=== PATIENT | male | born 1940 | race Caucasian/White ===

== ENCOUNTER 2017-08-22 15:40 | Emergency (ER) | payer MEDICARE ==
[2017-08-22] MEDS ORDERED: Sodium Chloride 0.9% 1000 ML 1,000 ML IV SCH (15:45)
[2017-08-22 15:54] LABS: A-aADO2 188; ABG HEMOGLOBIN 13.4; ABG POTASSIUM 4.1 (3.5-5.1); ARTERIAL BLD GAS O2 SATURATION 28.5 % (95-100); ARTERIAL BLOOD GAS BASE EXCESS -1.3 (-2.0-2.0); ARTERIAL BLOOD GAS FIO2 36 %; ARTERIAL BLOOD GAS PCO2 43 mmHg (35-45); ARTERIAL BLOOD GAS pH 7.36 (7.35-7.45); CARBOXYHEMOGLOBIN 1.5 % THgb (0.0-6.9); Glucose,Critical Care 88 (70-110); HCO3- 24.3 (22-28); HGB O2 SAT 27.8 g/dF (94-100); Lactic Acid 2.8 (0.4-2.0); Methhemoglobin 0.9 % (1.4-1.5); paO2 pAO1 0.07
[2017-08-22 15:55] LABS: ARTERIAL BLOOD GAS PO2 15 mmHg (75-100)
[2017-08-22 15:56] LABS: ABG SITE LEFT BRACHIAL
--- NOTE | 2017-08-22 16:11 | ERPHSYRPT ---
- History of Present Illness Time Seen by Provider: 08/22/17 15:45 Source: EMS, long term records Patient Subjective Stated Complaint: PT BROUGHT TO ED PER EMS-PT [place] WITH DECREASED LOC-ENROUTE [facility]IC ADMINISTERED NARCAN-PT THEN BECAME [id number] Triage Nursing Assessment: PT PALE WARM ET [id number] SIMPLE COMMANDS -NOT ABLE TO ANSWER ALL QUESTIONS-LUNGS CLEAR-PUPILS MORE RESPONSIVE THAN INITIAL ARRIVAL Physician History: CC: unresponsive hx: 76 y/o patient from [facility]. Pt of Dr Brendon Álvarez. He is in [place] post fractures last summer. He has a right arm brace. Nurse states he has had grdual decline and has periods of lethargy. Today the nurse went to give treatments and he was in bed unresponsive. Eyes rolled back in head. Vitals ok. Pulse ox 92%RA. He wears fentanyl patch. EMS was called. He was loaded into rescue truck and then transferred to a [facility] ambulance. They removed fentanyl patch, noted pinpoint pupils, and gave 1mg narcan with some improvement to a confused state. He was then brought to ER. Pt unable to give hx. Timing/Duration: today Severity: severe Allergies/Adverse Reactions: Penicillins Allergy (Mild, Verified 08/22/17 16:37) Home Medications: Albuterol/Ipratropium 3ml Neb* [DUONEB 0.5-3 MG/3 ml Neb] 3 ml NEB Q4H PRN 02/01 [History] Aspirin [Adult Aspirin Regimen] 81 mg PO DAILY 08/22/17 [History] Atorvastatin Calcium 80 mg PO DAILY 08/22/17 [History] Benzocaine/Menthol [Cepacol Sore Throat Lozenge] 1 each MM PER HOUR PRN [History] Dextran 70/Hypromellose [Artificial Tears] 1 each OP TID 08/22/17 [History] Fentanyl 1 each TD 2XW 08/22/17 [History] Fluticasone Propionate [Flovent Diskus] 50 mcg IH DAILY 08/22/17 [History] Folic Acid 0.4 mg PO DAILY 08/22/17 [History] Furosemide 40 mg [Lasix 40 MG] 40 mg PO DAILY 08/22/17 [History] Gabapentin 300 mg PO HS 08/22/17 [History] Guaifenesin/Dextromethorphan [Tussin Dm Syrup] 120 ml PO Q4H PRN 08/22/17 [ History] Hydralazine HCl 10 mg PO TID 08/22/17 [History] Loperamide HCl [Imodium A-D] 2 mg PO Q6H PRN 08/22/17 [History] Magnesium Hydroxide 30 ml [Milk of Magnesia 30 ml] 30 ml PO DAILY PRN 02/01 [History] Mirtazapine [Remeron] 15 mg PO HS 08/22/17 [History] Potassium Chloride 10 meq PO TID 08/22/17 [History] Sennosides [Senna] 8.6 mg PO BID PRN 08/22/17 [History] Tamsulosin HCl 0.4 mg PO HS 08/22/17 [History] Venlafaxine HCl [Effexor Xr] 75 mg PO DAILY 08/22/17 [History] Hx Tetanus, Diphtheria Vaccination/Date Given: No Hx Influenza Vaccination/Date Given: Yes Hx Pneumococcal Vaccination/Date Given: No Immunizations Up to Date: Yes - Review of Systems All Other Systems: Unable due to condition - Past Medical History Pertinent Past Medical History: Yes Neurological History: No Pertinent History ENT History: No Pertinent History Cardiac History: Arrhythmia, High Cholesterol, Hypertension Respiratory History: COPD, Emphysema Endocrine Medical History: No Pertinent History Musculoskeletal History: No Pertinent History GI Medical History: No Pertinent History History: No Pertinent History Psycho-Social History: No Pertinent History Male Reproductive Disorders: No Pertinent History Other Medical History: RESP MRSA - Past Surgical History Past Surgical History: Yes Cardiac: Pacemaker Gastrointestinal: Appendectomy - Social History Smoking Status: Current every day smoker How long have you smoked: 67 Exposure to second hand smoke: No Drug Use: none Patient Lives Alone: No ([facility]) - Nursing Vital Signs Nursing Vital Signs: Initial Vital Signs Temperature 98.4 F 08/22/17 16:31 Pulse Rate 74 08/22/17 16:31 Respiratory Rate 22 08/22/17 16:31 Blood Pressure 140/86 08/22/17 16:31 O2 Sat by Pulse Oximetry 98 08/22/17 16:31 - Physical Exam General Appearance: other (thin man, eyes open, rocking on bed, does not follow commands and not purposeful movement.) Eye Exam: PERRL/EOMI Ears, Nose, Throat Exam: dry mucous membranes Neck Exam: supple Respiratory Exam: crackles/rales, rhonchi, No respiratory distress Cardiovascular Exam: regular rate/rhythm Gastrointestinal/Abdomen Exam: soft, other (incontinent of stool), No tenderness , No distention Male Genitalia Exam: normal genitalia Extremity Exam: other (orthopedic appliance right arm) Neurologic Exam: alert, other (moves extremities but not purposeful) Skin Exam: warm, dry Procedures - Intubation Intubation Indications: airway protection Intubation Method: orotracheal, glidescope Medications: Etomidate, Rocuronium Endotracheal Tube Confirmation: bilateral breath sounds, positive end tidal CO2 , good rise & fall of chest, stable or inc of O2 sat Intubation Complications: no complications Performed By: Respiratory Therapy Post Intubation Xray: Yes - Course Nursing assessment & vital signs reviewed: Yes EKG Interpreted by Me: RATE (70 pacemaker rhythm) - Radiology Exams cxr X-ray Interpretation: Interpreted by me (COPD, increased interstitial markings, cardiomegaly) - CT Exams head CT Interpretation: Negative, Tele-radiologist Report Ordered Tests: Active Orders 24 hr Category Date Time Status CO2 Monitoring STAT Care 08/22/17 15:47 Active Perfusionist STAT Care 08/22/17 15:46 Active Catheter-[place] STAT Care 08/22/17 15:45 Active EKG-ER Only STAT Care 08/22/17 15:45 Active IV Insertion STAT Care 08/22/17 15:45 Active NPO (ED) STAT Care 08/22/17 15:45 Active Pulse Oximetry (ED) STAT Care 08/22/17 15:45 Active CHEST 1 VIEW (PORTABLE) Stat Exams 08/22/17 15:46 Taken CHEST 1 VIEW (PORTABLE) Stat Exams 08/22/17 18:24 Ordered HEAD WITHOUT CONTRAST [CT] Stat Exams 08/22/17 15:46 Taken ARTERIAL BLOOD GASES Stat Lab 08/22/17 15:45 Completed CBC W DIFF Stat Lab 08/22/17 16:26 Completed CMP Stat Lab 08/22/17 16:26 Completed CULTURE,URINE Stat Lab 08/22/17 17:00 Received Glucose,Critical Care Stat Lab 08/22/17 15:45 Completed Lactic Acid Stat Lab 08/22/17 15:45 Completed Lactic Acid Stat Lab 08/22/17 17:54 Ordered PROTIME WITH INR Stat Lab 08/22/17 16:26 Completed PTT Stat Lab 08/22/17 16:26 Completed TROPONIN Q3H Lab 08/22/17 16:26 Completed TROPONIN Q3H Lab 08/22/17 19:00 Ordered TROPONIN Q3H Lab 08/22/17 22:00 Ordered TROPONIN Q3H Lab 08/23/17 01:00 Ordered TROPONIN Q3H Lab 08/23/17 04:00 Ordered UA W/ MICROSCOPIC Stat Lab 08/22/17 17:00 Completed Urine Triage Profile Stat Lab 08/22/17 17:00 Received Medication Summary Generic Name Dose Route Start Last Admin Trade Name Freq PRN Reason Stop Dose Admin Sodium Chloride 1,000 mls @ 50 mls/hr 08/22/17 15:45 08/22/17 17:03 Sodium Chloride 0.9% 1000 Ml IV 09/21/17 15:44 50 mls/hr .Q20H ELE Administration Discontinued Medications Generic Name Dose Route Start Last Admin Trade Name Freq PRN Reason Stop Dose Admin Levetiracetam 1,000 mg/ 110 mls @ 400 mls/hr 08/22/17 17:00 08/22/17 17:15 Dextrose IV 08/22/17 17:16 400 mls/hr STAT ONE Administration Sodium Chloride Confirm 08/22/17 18:06 Sodium Chloride 0.9% 250 Ml Administered 08/22/17 18:07 Dose 250 mls @ ud IV .STK-MED ONE Lorazepam 1 mg 08/22/17 16:58 08/22/17 17:02 Ativan 2 Mg/1 Ml Vial IV 08/22/17 16:59 1 mg STAT ONE Administration Lorazepam Confirm 08/22/17 16:59 Ativan 2 Mg/1 Ml Vial Administered 08/22/17 17:00 Dose 2 mg .ROUTE .STK-MED ONE Midazolam HCl Confirm 08/22/17 18:06 Versed 50 Mg/ 10 Ml Mdv Administered 08/22/17 18:07 Dose 50 mg .ROUTE .STK-MED ONE Naloxone HCl Confirm 08/22/17 17:32 Narcan 2 Mg/2 Ml Administered 08/22/17 17:33 Dose 2 mg .ROUTE .STK-MED ONE Lab/Rad Data: Laboratory Result Diagrams 08/22/17 16:26 01/06/18 16:26 Laboratory Results 08/22/17 08/22/17 08/22/17 Range/Units 17:00 16:26 16:26 WBC (4.0-10.5) K/mm3 RBC (4.1-5.6) M/mm3 Hgb (12.5-18.0) gm/dl Hct (42-50) % MCV (78-100) fl MCH (26-32) pg MCHC (32-36) g/dl RDW (11.5-14.0) % Plt Count (150-450) K/mm3 MPV (6-9.5) fl Gran % (36.0-66.0) % Lymphocytes % (24.0-44.0) % Monocytes % (0.0-12.0) % Eosinophils % (0.00-5.0) % Basophils % (0.0-0.4) % Basophils # (0-0.4) INR 1.55 (0.8-3.0) APTT 43.4 H (24.1-36.1) SECONDS Puncture Site pCO2 (35-45) mmHg pO2 (75-100) mmHg Base Excess (-2.0-2.0) O2 Saturation (94-100) g/dF ABG pH (7.35-7.45) ABG HCO3 (22-28) ABG O2 Sat (Measured) (95-100) % Frankie Test A-a Gradient a/A Ratio Hemoglobin Carboxyhemoglobin (0.0-6.9) % THgb Methemoglobin (1.4-1.5) % Potassium (3.5-5.1) Glucose (70-110) Temperature C POC O2 Flow Rate % Sodium (136-145) mEq/L Chloride (98-107) mEq/L Carbon Dioxide (21-32) mEq/L Anion Gap (5-15) MEQ/L BUN (9-20) mg/dL Creatinine (0.55-1.30) mg/dl Estimated GFR ML/MIN Lactic Acid (0.4-2.0) Calcium (8.5-10.1) mg/dL Total Bilirubin (0.2-1.0) mg/dL AST (15-37) U/L ALT (12-78) U/L Alkaline Phosphatase (46-116) U/L Troponin I 0.363 H* (0.000-0.056) ng/ml Serum Total Protein (6.4-8.2) gm/dL Albumin (3.4-5.0) g/dL Ur Collection Type CLEAN CATCH Urine Color YELLOW (YELLOW) Urine Appearance CLEAR (CLEAR) Urine pH 5.0 (5-6) Ur Specific [place] 1.015 (1.005-1.025) Urine Protein 30 (Negative) Urine Ketones NEGATIVE (NEGATIVE) Urine Blood 50 (0-5) Dami/ul Urine Nitrite NEGATIVE (NEGATIVE) Urine Bilirubin NEGATIVE (NEGATIVE) Urine Urobilinogen NORMAL (0-1) mg/dL Ur Leukocyte Esterase NEGATIVE (NEGATIVE) Urine Microscopic RBC 5-10 (0-2) /HPF Urine Microscopic WBC 5-10 (0-5) /HPF Ur Epithelial Cells RARE (FEW) /HPF Amorphous Crystals MODERATE (NEGATIVE) /HPF Urine Bacteria FEW (NEGATIVE) /HPF Hyaline Casts 5-10 (0-2) /LPF Granular Casts 2-5 (NEGATIVE) /LPF Urine Culture Reflexed YES (NO) Urine Glucose NEGATIVE (NEGATIVE) mg/dL Specimen Received 08/22/17 1700 08/22/17 08/22/17 08/22/17 Range/Units 16:26 16:26 15:45 WBC 5.8 (4.0-10.5) K/mm3 RBC 4.31 (4.1-5.6) M/mm3 Hgb 11.9 L (12.5-18.0) gm/dl Hct 39.4 L (42-50) % MCV 91.4 (78-100) fl MCH 27.6 (26-32) pg MCHC 30.2 L (32-36) g/dl RDW 19.2 H (11.5-14.0) % Plt Count 100 L (150-450) K/mm3 MPV 11.9 H (6-9.5) fl Gran % 62.5 (36.0-66.0) % Lymphocytes % 26.1 (24.0-44.0) % Monocytes % 10.9 (0.0-12.0) % Eosinophils % 0.3 (0.00-5.0) % Basophils % 0.2 (0.0-0.4) % Basophils # 0.01 (0-0.4) INR (0.8-3.0) APTT (24.1-36.1) SECONDS Puncture Site LEFT BRACHIAL pCO2 43 (35-45) mmHg pO2 15 L* (75-100) mmHg Base Excess -1.3 (-2.0-2.0) O2 Saturation 27.8 L (94-100) g/dF ABG pH 7.36 (7.35-7.45) ABG HCO3 24.3 (22-28) ABG O2 Sat (Measured) 28.5 L (95-100) % Frankie Test NOT APPLICABLE A-a Gradient 188 a/A Ratio 0.07 Hemoglobin 13.4 Carboxyhemoglobin 1.5 (0.0-6.9) % THgb Methemoglobin 0.9 L (1.4-1.5) % Potassium 4.9 4.1 (3.5-5.1) Glucose 83 88 (70-110) Temperature 37.0 C POC O2 Flow Rate 36 % Sodium 132 L (136-145) mEq/L Chloride 99 (98-107) mEq/L Carbon Dioxide 19.6 L (21-32) mEq/L Anion Gap 18.5 H (5-15) MEQ/L BUN 26 H (9-20) mg/dL Creatinine 2.32 H (0.55-1.30) mg/dl Estimated GFR 29 ML/MIN Lactic Acid 2.8 H (0.4-2.0) Calcium 9.2 (8.5-10.1) mg/dL Total Bilirubin 2.00 H (0.2-1.0) mg/dL AST 152 H (15-37) U/L ALT 42 (12-78) U/L Alkaline Phosphatase 115 (46-116) U/L Troponin I (0.000-0.056) ng/ml Serum Total Protein 6.8 (6.4-8.2) gm/dL Albumin 2.8 L (3.4-5.0) g/dL Ur Collection Type Urine Color (YELLOW) Urine Appearance (CLEAR) Urine pH (5-6) Ur Specific [place] (1.005-1.025) Urine Protein (Negative) Urine Ketones (NEGATIVE) Urine Blood (0-5) Dami/ul Urine Nitrite (NEGATIVE) Urine Bilirubin (NEGATIVE) Urine Urobilinogen (0-1) mg/dL Ur Leukocyte Esterase (NEGATIVE) Urine Microscopic RBC (0-2) /HPF Urine Microscopic WBC (0-5) /HPF Ur Epithelial Cells (FEW) /HPF Amorphous Crystals (NEGATIVE) /HPF Urine Bacteria (NEGATIVE) /HPF Hyaline Casts (0-2) /LPF Granular Casts (NEGATIVE) /LPF Urine Culture Reflexed (NO) Urine Glucose (NEGATIVE) mg/dL Specimen Received - Progress Progress Note: 08/22/17 16:10 pH and lactic reviewed. Will check labs. Called Kalyn zaragoza [facility] for report. 08/22/17 18:31 He appeared to be having seizure activity with eyes rolled back in head and jerking of the left wrist. Never regained responsiveness although vitals ok. Unable to reach any family listed on [place] paper. Called Dr Alexander for [facility] who is listed on paper. He advised admit to [facility] hospitalist. Called Dr Escobar hospitalist at [facility] who accepts to transfer [facility]. He advise dintubate prior to transfer for airway protection. This was completed. Pt still unresponsive. He is on versed gtt. REpeat cxr shows increased infiltrates with ETT ok. Will culture and start abtx. - Departure Time of Disposition: 18:34 Departure Disposition: Transfer ([facility] ICU) Clinical Impression: Unresponsive, Seizure, half-way-acquired pneumonia, Elevated troponin, Renal failure Condition: Serious Critical Care Time: Yes Critical Care Time(excluding separately billable procedures): 30-74 minutes Referrals: STORMY PATEL [Primary Care Provider] -
[2017-08-22 16:30] LABS: BASOPHIL % 0.2 % (0.0-0.4); Basophil (Absolute #) 0.01 (0-0.4); Eosinophil % 0.3 % (0.00-5.0); Eosinophil (Absolute #) 0.02 (0-0.5); Granulocyte Absolute (ANC) 3.61 (1.4-6.9); Granulocytes % 62.5 % (36.0-66.0); Hematocrit 39.4 % (42-50); Hemoglobin 11.9 gm/dl (12.5-18.0); Lymphocyte (Absolute #) 1.51 (1.0-4.6); Lymphocytes % 26.1 % (24.0-44.0); Mean Cell Volume 91.4 fl (78-100); Mean Corpuscular Hemoglobin 27.6 pg (26-32); Mean Corpuscular Hgb Concent. 30.2 g/dl (32-36); Mean Platelet Volume 11.9 fl (6-9.5); Monocyte (Absolute #) 0.63 (0.0-1.3); Monocytes % 10.9 % (0.0-12.0); Platelet Count 100 K/mm3 (150-450); Red Blood Count 4.31 M/mm3 (4.1-5.6); Red Cell Distribution Width 19.2 % (11.5-14.0); White Blood Count 5.8 K/mm3 (4.0-10.5)
[2017-08-22 16:45] LABS: INR 1.55 (0.8-3.0)
[2017-08-22 16:48] LABS: PTT 43.4 SECONDS (24.1-36.1)
[2017-08-22 16:54] LABS: ALBUMIN 2.8 g/dL (3.4-5.0); ANION GAP 18.5 MEQ/L (5-15); Calcium 9.2 mg/dL (8.5-10.1); Carbon Dioxide 19.6 mEq/L (21-32); Creatinine 1 2.32 mg/dl (0.55-1.30); Potassium 4.9 mEq/L (3.5-5.1); Total Protein 6.8 gm/dL (6.4-8.2)
[2017-08-22] MEDS ORDERED: Ativan 2 MG/1 ML VIAL IV ONE (16:58)
[2017-08-22] MEDS ORDERED: Ativan 2 MG/1 ML VIAL ONE (16:59)
[2017-08-22] MEDS ORDERED: Keppra 500 MG/5 ML*** 1,000 MG in D5w 100ML Mini Bag 100 ML 100 ML IV ONE (17:00)
[2017-08-22] MEDS ORDERED: Sodium Chloride 0.9% 1000 ML 1,000 ML ONE (17:02)
[2017-08-22] MEDS ORDERED: NARCAN 2 MG/2 ML ONE (17:32)
[2017-08-22 18:01] LABS: Amphetamine,Urine NEG. (NEGATIVE); Barbiturate,Urine NEG. (NEGATIVE); Benzodiazepine,Urine NEG. (NEGATIVE); Cocaine,Urine NEG. (NEGATIVE); Methadone,Urine NEG. (NEGATIVE); Opiate,Urine NEG. (NEGATIVE); PCP,Urine NEG. (NEGATIVE); THC,Urine NEG. (NEGATIVE)
[2017-08-22] MEDS ORDERED: Sodium Chloride 0.9% 250 ML 250 ML IV ONE (18:06)
[2017-08-22] MEDS ORDERED: Versed 50 MG/ 10 Ml MDV ONE (18:06)
[2017-08-22] MEDS ORDERED: Zemuron 100 MG/10 ML IV ONE (18:14)
[2017-08-22] MEDS ORDERED: Amidate 20 MG/10 ML IV ONE (18:14)
[2017-08-22 18:25] LABS: Appearance CLEAR (CLEAR); Bilirubin NEGATIVE (NEGATIVE); Blood 50 Ery/ul (0-5); Epithelial Cells RARE /HPF (FEW); Glucose NEGATIVE (NEGATIVE); Ketones NEGATIVE (NEGATIVE); Leukocyte Esterase NEGATIVE (NEGATIVE); Nitrite NEGATIVE (NEGATIVE); Protein,Urine Dip 30 (Negative); Specific Gravity 1.015 (1.005-1.025); Urobilinogen NORMAL mg/dL (0-1)
[2017-08-22 18:26] LABS: Amourphous Crystal MODERATE /HPF (NEGATIVE); Bacteria FEW /HPF (NEGATIVE)
[2017-08-22] MEDS ORDERED: Merrem 1 GM 1 G in Sodium Chloride 100ML MINI-BAG PLUS 100 ML IV ONE (18:35)
[2017-08-22] MEDS ORDERED: Merrem 1 GM IV ONE (18:42)
[2017-08-22] MEDS ORDERED: Sodium Chloride 0.9% 100 ML IVPB 100 ML IV ONE (18:42)
[2017-08-22 19:12] VITALS: PULSE 69
[2017-08-22 19:33] LABS: A-aADO2 134; ABG HEMOGLOBIN 12.1; ABG POTASSIUM 3.3 (3.5-5.1); ABG SITE RIGHT RADIAL; ALLEN TEST OK? y; ARTERIAL BLOOD GAS BASE EXCESS -2.1 (-2.0-2.0); ARTERIAL BLOOD GAS FIO2 70 %; ARTERIAL BLOOD GAS PCO2 36 mmHg (35-45); ARTERIAL BLOOD GAS PO2 320 mmHg (75-100); CARBOXYHEMOGLOBIN 2.1 % THgb (0.0-6.9); HCO3- 22.3 (22-28); HGB O2 SAT 97.3 g/dF (94-100); Methhemoglobin 0.6 % (1.4-1.5)
[2017-08-22 20:01] VITALS: BP 147/82; O2SAT 100
--- NOTE | 2017-08-23 10:26 | XRAY ---
Indication: Altered mental status. Multiple contiguous axial images obtained through the head without contrast. Comparison: June 29, 2015. Exam degraded by mild motion artifact even with repeat CT. Grossly stable age appropriate global atrophy and mild periventricular degenerative micro-ischemia. No gross acute intracranial hemorrhage, abnormal extra-axial fluid collection, or mass effect. Fourth ventricle is midline without hydrocephalus. Bony calvarium intact. There is now right maxillary sinus mucosal thickening with small fluid leveling. Stable left sphenoid sinus mucoperiosteal thickening. Mastoid air cells clear. Impression: Limited exam due to motion artifact. Grossly stable nonacute senile brain. Incidental paranasal sinus disease. Comment: Preliminary interpretation was made by [facility]. No critical discrepancy. CTDI 60.26
--- NOTE | 2017-08-23 10:28 | XRAY ---
Indication: Altered mental status. Comparison: June 29, 2015. Portable chest remains hyperinflated with chronic lung markings and left-sided single lead pacemaker. No focal infiltrate, consolidation, or large effusion. Heart is not enlarged for AP portable technique. Bony thorax intact again with osteopenia and degenerative changes. Impression: Stable nonacute hyperinflated chest with chronic features.
--- NOTE | 2017-08-23 10:30 | XRAY ---
Indication: Intubation. Limited portable chest demonstrates endotracheal tube tip 5 cm above the darron. Remaining chest unchanged with respect to chest exam earlier in the day.
== END 2017-08-22 21:05 | disposition short-term general hospital (02) ==
LOC: ED 15:40
DX: R40.20 Unspecified coma (principal); J18.9 Pneumonia, unspecified organism; R77.8 Other specified abnormalities of plasma proteins; N19 Unspecified kidney failure; A41.9 Sepsis, unspecified organism
CPT/HCPCS: 31500; 36415; 36600; 51702; 70450; 71045; 80053; 80307; 81000; 82375; 82803; 82947; 82962; 83605; 84484; 85025; 85610; 85730; 87040; 87086; 93005; 93041; 94002; 94770; 94799; 96365; 96366; 96367; 99291; 99292; J1953; J2060; J2250; J2310